=== PATIENT | male | born 1955 | race Caucasian/White ===

== ENCOUNTER → 2016-09-18 | Outpatient (REF) | payer MEDICARE, MEDICAID | LOC: M LAB REF 12:41 | PROVIDERS: ATTEND Otolaryngology | DX: L85.9 Epidermal thickening, unspecified (principal); L83 Acanthosis nigricans; L30.8 Other specified dermatitis ==

== ENCOUNTER → 2017-01-18 | Outpatient (CLI) | payer MEDICARE, MEDICAID | LOC: M SMT 11:37 | PROVIDERS: ATTEND Nurse Practitioner Family | DX: Z12.5 Encounter for screening for malignant neoplasm of prostate (principal) | CPT/HCPCS: 36415; G0103; G0463 ==

== ENCOUNTER → 2017-05-04 | Outpatient (CLI) | payer MEDICARE, MEDICAID ==
[~2017-05-04] MED LIST: ACETAMINOPHEN 325 MG TAB As Ordered ONE; LIDOCAINE 1% MDV 20ML VIAL As Ordered ONE
--- NOTE | 2017-05-04 16:44 | REP ---
ULTRASOUND GUIDED LIVER BIOPSY: The procedure was performed under the direct supervision of Dr. Delcid. The risks and benefits of the procedure were explained to the patient and informed consent was obtained. The left lobe of the liver was localized using ultrasound guidance. The skin was prepped and draped in a sterile fashion. 1% Xylocaine was used as local anesthetic. Using ultrasound guidance, a 19/20-gauge coaxial needle biopsy system was inserted and advanced into the liver. Four core biopsy samples were obtained and sent to the lab. The patient tolerated the procedure well and there were no immediate complications. After the appropriate amount of monitored convalescence, the patient was discharged from the department. Reviewed by FOUZIA Diamond 05/07/2017 03:30 PEdited and Signed by Stanford Delcid MD 05/07/2017 03:56 P
== END | disposition home or self-care (01) ==
LOC: M RADPRO 08:51
PROVIDERS: ATTEND Family Medicine
DX: K75.9 Inflammatory liver disease, unspecified (principal); K74.0 Hepatic fibrosis; Z79.899 Other long term (current) drug therapy

== ENCOUNTER → 2018-08-23 | Outpatient (CLI) | payer MEDICARE, MEDICAID ==
[~2018-08-23] MED LIST changes: -ACETAMINOPHEN 325 MG TAB As Ordered ONE; +ISOVUE-370 76% 100ML VIAL (Q9967) As Ordered ONE; -LIDOCAINE 1% MDV 20ML VIAL As Ordered ONE
--- NOTE | 2018-09-10 12:54 | REP ---
CT angiography of the abdominal aorta and runoff arteries with IV contrast: Repeat dictation. History: Peripheral vascular disease. Pain bilateral legs. No comparison CT studies. CT contrast dose: 100 mL of intravenous Isovue [address] findings: The lower thoracic aorta is normal in caliber and somewhat tortuous. The celiac, superior mesenteric, and inferior mesenteric artery origins are unremarkable and patent. Singular non-stenotic bilateral renal arteries are seen. There is mild atherosclerotic plaquing in the infrarenal abdominal aorta. No aneurysm is seen. No aortic stenosis is noted. Bilateral calcific plaquing is seen in the common iliac arteries and in the proximal external iliac artery and internal iliac artery on the right. No aneurysm is seen. No iliac artery stenosis is noted. There is calcific plaquing, mild in degree in the bifurcations of the common femoral arteries bilaterally. 40% narrowing is seen from calcific plaquing in the proximal SFA on the right. Profunda is widely patent. There is minimal atherosclerotic irregularity of the distal superficial femoral artery on the right. Good caliber popliteal artery is seen. There is poor visualization of the calf runoff arteries bilaterally, this appears to be due to slow circulation time as it is bilateral and fairly symmetric. I suspect that the proximal calf run off vessels are bilaterally patent as seen on source images. There are not well seen on maximum intensity projection or processed images. On the left the profunda and superficial femoral artery are patent. Minimal atherosclerotic plaquing is seen in the distal superficial femoral artery. Left popliteal and trifurcation is patent. Contrast opacification is poor in the calf runoff vessels on the left similar to those on the right. Impression: Symmetrically somewhat slower flow artifactually impairing visualization of the calf runoff vessels bilaterally. Mild atherosclerotic changes. No large vessel stenosis or occlusion seen. Electronically Signed by Stanford Delcid MD 09/10/2018 06:05 P
== END ==
LOC: M RAD 14:48
PROVIDERS: ATTEND Psychiatry & Neurology Neurology
DX: I73.9 Peripheral vascular disease, unspecified (principal); M79.604 Pain in right leg; M79.605 Pain in left leg
CPT/HCPCS: 75635; Q9967

== ENCOUNTER → 2018-12-04 | Outpatient (CLI) | payer MEDICARE, MEDICAID | LOC: M PAIN 14:45 | PROVIDERS: ATTEND Anesthesiology | DX: M54.5 Low back pain (principal); Z53.29 Procedure and treatment not carried out because of patient's decision for other reasons ==

== ENCOUNTER → 2019-05-26 | Outpatient (CLI) | payer MEDICARE, MEDICAID | LOC: M SMT 14:41 | PROVIDERS: ATTEND Nurse Practitioner Family | DX: Z12.5 Encounter for screening for malignant neoplasm of prostate (principal) | CPT/HCPCS: 36415; G0103; G0463 ==

== ENCOUNTER 2022-01-17 09:18 | Outpatient (CLI) | payer MEDICARE, MEDICAID ==
[~2022-01-17] VITALS: Ht 185.4 cm; Wt 86.0 kg
[~2022-01-17 09:18] MED LIST changes: +IRON SUCROSE 200 MG in NS 100 ML OVER 1 HR IV ONE; -ISOVUE-370 76% 100ML VIAL (Q9967) As Ordered ONE
[2022-01-17 09:40] VITALS: BP 149/87
[2022-01-17 10:40] VITALS: BP 131/84
== END 2022-01-17 10:40 | disposition home or self-care (01) ==
LOC: M INFU 09:18
PROVIDERS: ATTEND Family Medicine
DX: D64.9 Anemia, unspecified (principal); Z88.8 Allergy status to other drugs, medicaments and biological substances
CPT/HCPCS: 96365; J1756

== ENCOUNTER 2022-02-17 13:10 | Outpatient (CLI) | payer MEDICARE, MEDICAID ==
[~2022-02-17] VITALS: Ht 185.4 cm; Wt 94.0 kg
[2022-02-17 13:10] VITALS: BP 122/78
[~2022-02-17 13:10] MED LIST changes: -IRON SUCROSE 200 MG in NS 100 ML OVER 1 HR IV ONE; +UNRESOLVED CLARIFICATION ENTRY XX SCH
[2022-02-17] MEDS ORDERED: IRON SUCROSE 200 MG in NS 100 ML OVER 1 HR IV ONE (13:30)
[2022-02-17 15:06] VITALS: BP 132/77
== END 2022-02-17 15:10 | disposition home or self-care (01) ==
LOC: M INFU 13:10
PROVIDERS: ATTEND Family Medicine
DX: D64.9 Anemia, unspecified (principal); Z88.8 Allergy status to other drugs, medicaments and biological substances
CPT/HCPCS: 96365; J1756

== ENCOUNTER 2022-04-18 13:15 | Outpatient (CLI) | payer MEDICARE, MEDICAID ==
[~2022-04-18] VITALS: Ht 185.4 cm; Wt 85.5 kg
[~2022-04-18 13:15] MED LIST changes: +IRON SUCROSE 200 MG in NS 100 ML OVER 1 HR IV ONE; -UNRESOLVED CLARIFICATION ENTRY XX SCH
[2022-04-18 13:21] VITALS: BP 134/80
[2022-04-18 15:35] VITALS: BP 171/88
== END 2022-04-18 15:30 | disposition home or self-care (01) ==
LOC: M INFU 13:15
PROVIDERS: ATTEND Family Medicine
DX: E61.1 Iron deficiency (principal); Z88.8 Allergy status to other drugs, medicaments and biological substances
CPT/HCPCS: 96365; J1756

== ENCOUNTER → 2022-06-06 | Outpatient (CLI) | payer MEDICARE, MEDICAID | LOC: M CARPUL 13:33 | PROVIDERS: ATTEND Internal Medicine Pulmonary Disease | DX: R06.02 Shortness of breath (principal) ==

== ENCOUNTER 2022-07-14 12:54 | Outpatient (CLI) | payer MEDICARE, MEDICAID ==
[~2022-07-14] VITALS: Ht 185.4 cm; Wt 92.2 kg
[2022-07-14] MEDS ORDERED: IRON SUCROSE 200 MG in NS 100 ML IV ONE (13:00)
[2022-07-14] MEDS ORDERED: IRON SUCROSE 200 MG in NS 100 ML OVER 1 HR IV ONE (13:00)
[2022-07-14 13:15] VITALS: BP 168/70
[2022-07-14 14:33] VITALS: BP 149/83
== END 2022-07-14 14:40 | disposition home or self-care (01) ==
LOC: M INFU 12:54
PROVIDERS: ATTEND Family Medicine
DX: E61.1 Iron deficiency (principal); Z88.8 Allergy status to other drugs, medicaments and biological substances
CPT/HCPCS: 36415; 80048; 80076; 82728; 83550; 85025; 85610; 85730; 86317; 86704; 86708; 96365; J1756

== ENCOUNTER → 2022-07-14 | Outpatient (CLI) | payer MEDICARE, MEDICAID ==
[2022-07-14 13:26] LABS: BASO % 0.7 % (0.0-1.0); EOS # 0.1 10^3/uL (0.0-0.5); EOS % 2.2 % (0.0-3.0); HEMATOCRIT 33.4 % (42.0-52.0); HEMOGLOBIN 11.1 g/dl (13.5-17.5); LYMPH # 0.7 10^3/uL (1.5-5.0); LYMPH % 14.8 % (24.0-44.0); MEAN CORPUSCULAR HEMOGLOBIN 28.7 pg (27.0-33.0); MEAN CORPUSCULAR HGB CONC 33.2 g/dl (32.0-36.5); MEAN CORPUSCULAR VOLUME 86.3 fl (80.0-96.0); MONO # 0.5 10^3/uL (0.0-0.8); MONO % 10.3 % (2.0-8.0); NEUTROPHILS # 3.2 10^3/uL (1.5-8.5); NEUTROPHILS % 71.8 % (36.0-66.0); PLATELET COUNT, AUTOMATED 236 10^3/uL (150-450); RED BLOOD COUNT 3.87 10^6/uL (4.30-6.10); WHITE BLOOD COUNT 4.5 10^3/uL (4.0-10.0)
[2022-07-14 13:38] LABS: INR 0.95; PROTHROMBIN TIME 12.9 SECONDS (12.5-14.5)
[2022-07-14 13:39] LABS: PARTIAL THROMBOPLASTIN TIME 27.8 SECONDS (24.8-34.2)
[2022-07-14 14:25] LABS: ALBUMIN 4.2 G/DL (3.2-5.2); ALT/SGPT 25 U/L (7.0-40); BILIRUBIN,DIRECT 0.1 MG/DL (<0.4); BILIRUBIN,TOTAL 0.4 MG/DL (0.3-1.2); BLOOD UREA NITROGEN 9 MG/DL (9-23); CALCIUM LEVEL 9.8 MG/DL (8.3-10.6); CARBON DIOXIDE LEVEL 28 MMOL/L (20-31); CHLORIDE LEVEL 96 MMOL/L (98-107); CREATININE FOR GFR 1.12 MG/DL (0.70-1.30); FERRITIN 9.8 NG/ML (10.5-307.3); GLOMERULAR FILTRATION RATE > 60.0 (>49); GLUCOSE, FASTING 91 MG/DL (74-106); IRON (FE) 94 UG/DL (65-175); PERCENT SATURATION 21.5 % (19.7-50.0); SODIUM LEVEL 131 MMOL/L (136-145); TOTAL IRON BINDING CAPACITY 437 UG/DL (250-425); TOTAL PROTEIN 6.7 G/DL (5.7-8.2)
== END ==
LOC: M LAB 13:02
PROVIDERS: ATTEND Internal Medicine Gastroenterology
DX: K74.60 Unspecified cirrhosis of liver (principal)

== ENCOUNTER 2022-09-29 10:26 | Day surgery (SDC) | payer MEDICARE, MEDICAID ==
[~2022-09-29] VITALS: Ht 185.4 cm; Wt 88.0 kg
[~2022-09-29 10:26] MED LIST changes: -IRON SUCROSE 200 MG in NS 100 ML OVER 1 HR IV ONE; +LISI20TA33 PO; +MELO15TA28 PO; +NS 1,000 ML IV ONE; +OMEP40CA4 PO; +VENL75TA2 PO
[2022-09-29] MEDS ORDERED: propofoL 200 MG/20 ML VIAL As Ordered ONE ×2 (11:33→12:52)
[2022-09-29] MEDS ORDERED: LIDOCAINE 2% 100MG/5ML SDV (FOR ANES.) As Ordered ONE (11:33)
[2022-09-29] MEDS ORDERED: fentaNYL 100 MCG/2 ML INJECTION As Ordered ONE (12:12)
[2022-09-29 13:20] VITALS: BP 166/82
== END 2022-09-29 14:25 | disposition home or self-care (01) ==
LOC: M OPP 10:26
PROVIDERS: ATTEND Internal Medicine Gastroenterology
DX: Z12.11 Encounter for screening for malignant neoplasm of colon (principal); Z80.0 Family history of malignant neoplasm of digestive organs; D12.3 Benign neoplasm of transverse colon; K52.9 Noninfective gastroenteritis and colitis, unspecified; K64.4 Residual hemorrhoidal skin tags; K64.8 Other hemorrhoids; D50.9 Iron deficiency anemia, unspecified; K29.70 Gastritis, unspecified, without bleeding; K74.60 Unspecified cirrhosis of liver; Z79.899 Other long term (current) drug therapy; I10 Essential (primary) hypertension; B19.20 Unspecified viral hepatitis C without hepatic coma; F17.200 Nicotine dependence, unspecified, uncomplicated
CPT/HCPCS: 43239; 45380; 45385; 88305; J3010